=== PATIENT | female | born 1985 | race Caucasian/White ===

== ENCOUNTER → 2016-05-22 | Outpatient (REF) | payer OTHER ==
[~2016-05-22] MED LIST: DOCU10CA PO; FERR325T3 PO; IBUP80TA PO; PERCOCET PO; PRENTAB9 PO
== END | disposition home or self-care (01) ==
LOC: M LAB REF 16:59
PROVIDERS: ATTEND Advanced Practice Midwife
DX: Z34.83 Encounter for supervision of other normal pregnancy, third trimester (principal); Z36 Encounter for antenatal screening of mother; Z3A.00 Weeks of gestation of pregnancy not specified

== ENCOUNTER → 2016-05-23 | Outpatient (CLI) | payer OTHER ==
--- NOTE | 2016-05-23 16:01 | REP ---
Clinical: Growth evaluation. Comparison: 01/26/2016 . Findings: Examination demonstrates a single live intrauterine in cephalic presentation. motion is identified by technologist. Placenta is noted posteriorly and grade zero without evidence for placenta previa or abruption. Amniotic fluid volume is normal. Cervix measures 4.5 cm in length and appears closed. No evidence for nuchal cord. Gestational age by LMP 38 weeks 4-day with MONO 06/02/2016 . Gestational age by current measurements 38 weeks 5 days with MONO 06/01/2016 . FHR equals 131 beats per minute. BPD 10.1 cm 41 weeks 1 day HC 36.2 cm 42+ weeks AC 36.4 cm 40 weeks 2-day FL 7.1 cm 36 weeks 1 day HL 6.3 cm 36 weeks 5 days HC/AC ratio 1.00 Estimated weight 3935 grams ( 82nd percentile). Amniotic fluid index equals 17.4 cm Impression: Single live advanced gestation in cephalic presentation demonstrating appropriate interval growth. Estimated weight and amniotic fluid volume are within normal range. Signed by Eugenio Sandoval MD 05/23/2016 03:53 P
== END ==
LOC: M RAD 13:55
PROVIDERS: ATTEND Advanced Practice Midwife
DX: Z36 Encounter for antenatal screening of mother (principal)

== ENCOUNTER 2016-06-12 05:34 | Inpatient (IN) | payer OTHER ==
[~2016-06-12] VITALS: Ht 165.1 cm; Wt 110.0 kg
[2016-06-12] VITALS (7 sets, daily range): BP systolic 93–108; BP diastolic 50–57
[2016-06-12] MEDS ORDERED: BICITRA 30ML SOLN UDC PO ONE (06:30)
[2016-06-12 06:49] LABS: BASO % 0.2 % (0.0-1.0); EOS # 0.1 K/mm3 (0.0-0.50); EOS % 0.8 % (0.0-3.0); LARGE UNSTAINED CELL # 0.1 K/mm3 (0.0-0.4); LARGE UNSTAINED CELL % 1.6 % (0.0-4.0); LYMPH # 2.3 K/mm3 (1.5-6.5); LYMPH % 25.5 % (24.0-44.0); MEAN CORPUSCULAR HEMOGLOBIN 27.8 pg (27.0-33.0); MEAN CORPUSCULAR HGB CONC 33.5 g/dl (32.0-36.5); MEAN CORPUSCULAR VOLUME 83.1 fl (80.0-96.0); MONO # 0.6 K/mm3 (0.0-0.8); MONO % 7.3 % (0.0-5.0); NEUTROPHILS # 5.6 K/mm3 (1.8-7.7); NEUTROPHILS % 64.6 % (36.0-66.0); PLATELET COUNT, AUTOMATED 281 k/mm3 (150-450); RED CELL DISTRIBUTION WIDTH 13.4 % (11.5-14.5); WHITE BLOOD COUNT 8.6 K/mm3 (4.0-10.0)
[2016-06-12] MEDS ORDERED: OXYTOCIN INJ 10 UNITS/ML VIAL (J2590) As Ordered ONE (07:15)
[2016-06-12] MEDS ORDERED: MORPHINE PRES-FREE INJ 10 MG/10 ML VIAL (J2274) As Ordered ONE (07:15)
[2016-06-12] MEDS ORDERED: NALBUPHINE HCL 10 MG/ML AMP (J2300) IV PRN (07:58)
[2016-06-12] MEDS ORDERED: NALOXONE INJ 0.4 MG/1 ML VIAL (J2310) IV PRN ×2 (07:58)
[2016-06-12] MEDS ORDERED: ONDANSETRON 4MG/2ML VIAL (J2405) IV PRN ×2 (07:58→10:00)
[2016-06-12] MEDS ORDERED: METOCLOPRAMIDE INJ 10MG/2ML VIAL (J2765) IV PRN (07:58)
[2016-06-12] MEDS ORDERED: KETOROLAC 60 MG/2 ML VIAL (J1885) As Ordered ONE (08:16)
[2016-06-12] MEDS ORDERED: ONDANSETRON 4MG/2ML VIAL (J2405) As Ordered ONE (08:16)
[2016-06-12] MEDS ORDERED: PHENYLephrine HCL 500 MCG/5 ML (100MCG/ML) SYRINGE (J2370) As Ordered ONE (08:16)
[2016-06-12] MEDS ORDERED: ePHEDrine SULFATE 25 MG/5 ML(5MG/ML) SYRINGE As Ordered ONE ×2 (08:16→08:27)
[2016-06-12] MEDS ORDERED: OXYTOCIN DRIP 30 UNITS in APPROPRIATE DILUENT 1 EA IV ONE (09:25)
[2016-06-12] MEDS: LR 1,000 ML IV SCH ×3 (09:25→22:50)
[2016-06-12] MEDS ORDERED: PERCOCET 5MG/325MG TAB PO PRN ×3 (09:30→10:00)
[2016-06-12] MEDS ORDERED: MEASLES,MUMPS,RUBELLA VACCINE INJ (MMR-II) (90707) SC SCH (09:30)
[2016-06-12] MEDS ORDERED: DOCUSATE SODIUM 100 MG CAP PO PRN (09:30)
[2016-06-12] MEDS ORDERED: RHOGAM 300 MCG (1500 IU) INJ (J2790) IM SCH (09:30)
[2016-06-12] MEDS ORDERED: MOM 30ML SUSPENSION UDC PO PRN (09:30)
[2016-06-12] MEDS ORDERED: IBUP800T23 PO (09:33)
[2016-06-12] MEDS ORDERED: PERC5TAB6 PO (09:36)
--- NOTE | 2016-06-12 09:47 | RO ---
DATE OF PROCEDURE: 06/12/2016 PREOPERATIVE DIAGNOSIS: Intrauterine at 39 weeks for repeat section. POSTOPERATIVE DIAGNOSIS: Intrauterine at 39 weeks for repeat section. PROCEDURE PERFORMED: Repeat section. SURGEON: Amna Naidu MD ASSISTANTS: Thania Peterson CNM and Marco Ha, MS III. ANESTHESIA: Spinal. ESTIMATED BLOOD LOSS: 900 mL. URINE OUTPUT: 100 mL. INTRAVENOUS FLUIDS: 2 liters of Lactated Ringer's solution. PREOPERATIVE ANTIBIOTICS: 2 grams of Ancef. SPECIMENS: Cord blood. OPERATIVE FINDINGS: Live born male infant, score 9 and 9, weight was 4354 grams or 9 pounds 10 ounces. DESCRIPTION OF PROCEDURE/OPERATION: After informed consent was obtained and written consent was reviewed, the patient was brought to the operating room where spinal anesthesia was placed. She was then placed in supine position with a left lateral tilt. A Telles catheter was placed. She was then prepped and draped in a normal sterile fashion. A time out in the operating room was performed identifying the patient, procedure to be performed, as well as drug allergies. Anesthesia was tested and deemed to be adequate. A Pfannenstiel skin incision was then made and carried down to the underlying rectus fascia. The fascia was scored and this incision was extended bilaterally. The fascia was then dissected off the underlying rectus muscles both superiorly and inferiorly. The rectus muscles were in the midline. The peritoneum was entered sharply and this was extended. The vesicouterine peritoneum was then identified and was tented and excised to create a bladder flap. A bladder blade was placed retracting back the bladder. A curvilinear incision was then made in the lower uterine segment. Amniotomy was then performed productive of clear fluid. The head was then brought to the level of the incision atraumatically followed by delivery of shoulders and corpus. Cord was clamped times two and was cut. The was brought over to the warmer with a good cry. Cord blood was obtained. Placenta was then delivered grossly intact. The uterus was then exteriorized and cleared of all clots and debris. The uterine incision was closed in two layers using #0 Vicryl on the first layer in a running locking fashion followed by a second layer in a running nonlocking fashion for imbrication. There was a left sided uterine extension which was repaired separately using #0 Vicryl. A figure-of-8 stitch was also placed for hemostasis. On inspection, the uterine incision appeared to be hemostatic. The abdomen was then suctioned. The uterus was returned to the patient's abdomen and once again inspected and noted to be hemostatic. The anterior peritoneum was reapproximated using #3-0 Vicryl. The rectus muscles were reapproximated using #3-0 Vicryl. The fascia was then closed using #0 Vicryl in a running, nonlocking fashion. The subcutaneous tissue was reapproximated using #3-0 Vicryl and several subdermal stitches were placed using #3-0 Vicryl. The skin was then closed with #4-0 Monocryl in a subcuticular fashion. The incision was then cleaned and dry. Mastisol was applied above and blow the incision and Steri-Strips applied over the incision and then the incision was dressed. The patient was then taken to recovery in stable condition. Counts were correct. The couple has decided to name their son
[2016-06-12] MEDS ORDERED: LR 1,000 ML IV SCH (10:00)
[2016-06-12] MEDS ORDERED: fentaNYL 100 MCG/2 ML INJECTION (J3010) IV PRN (10:00)
[2016-06-12] MEDS ORDERED: OXYTOCIN 30 UNITS IN 0.9% NaCl 500ML IV BAG (J2590) As Ordered ONE (10:05)
[2016-06-12] MEDS: KETOROLAC 30 MG/ML VIAL (J1885) IV SCH ×2 (15:25→21:11)
[2016-06-12] MEDS ORDERED: LACTATED RINGER'S 1000 ML IV ONE (22:30)
[2016-06-13 02:10] VITALS: BP 101/59
[2016-06-13] MEDS: KETOROLAC 30 MG/ML VIAL (J1885) IV SCH ×2 (02:45→08:53)
[2016-06-13 05:25] VITALS: BP 103/51
[2016-06-13 07:07] LABS: MEAN CORPUSCULAR HEMOGLOBIN 28.2 pg (27.0-33.0); MEAN CORPUSCULAR HGB CONC 33.1 g/dl (32.0-36.5); MEAN CORPUSCULAR VOLUME 85.3 fl (80.0-96.0); RED CELL DISTRIBUTION WIDTH 13.9 % (11.5-14.5)
[2016-06-13] MEDS: PRENATAL VITAMIN TAB PO SCH (08:54)
[2016-06-13] MEDS: LR 1,000 ML IV SCH (09:25)
[2016-06-13 10:00] VITALS: BP 123/64
[2016-06-13 14:04] VITALS: BP 104/54
[2016-06-13] MEDS: IBUPROFEN 800 MG TAB PO SCH (16:50)
[2016-06-13 18:16] VITALS: BP 124/65
[2016-06-13 22:00] VITALS: BP 118/58
[2016-06-14] MEDS: IBUPROFEN 800 MG TAB PO SCH ×2 (01:25→08:45)
[2016-06-14 06:09] VITALS: BP 119/89
--- NOTE | 2016-06-14 08:08 | DSES ---
DATE OF ADMISSION: 06/12/2016 DATE OF DISCHARGE: DISCHARGE DIAGNOSIS: Repeat section. DISCHARGE CONDITION: Stable. PROCEDURE PERFORMED WHILE IN HOSPITAL: 1. Spinal anesthesia. 2. Repeat section. HISTORY AND HOSPITAL COURSE: Mrs. Willard is a 30-year-old, 3, now para 3 who initially presented for scheduled section. She underwent an uncomplicated section productive of a liveborn male infant. Mrs. Willard did well postoperatively. By postoperative day #2 had met all discharge criteria and was discharged home in stable condition. On the date of discharge, physical examination showed vital signs stable. She is afebrile. GENERAL APPEARANCE: She is well appearing. No acute distress. ABDOMEN: Soft, appropriately tender. Fundus is below the umbilicus. Incision was clean, dry and intact, well approximated and not erythematous. EXTREMITIES: Negative for calf tenderness. DISCHARGE INSTRUCTIONS: She was instructed to followup in 2 weeks for an incision check, remain on pelvic rest for 6 weeks, report severe pain, heavy vaginal bleeding, fever, incisional issues.
[2016-06-14] MEDS: PRENATAL VITAMIN TAB PO SCH (08:45)
[2016-06-14] MEDS ORDERED: OXYC1TAB23 PO (11:07)
[2016-06-14] MEDS ORDERED: MOM30SS PO (11:07)
[2016-06-14] MEDS ORDERED: COLA100C PO (11:07)
== END 2016-06-14 14:10 | disposition home or self-care (01) | DRG 540 ==
LOC: M LDI 05:34 → M OBS 11:03
PROVIDERS: ADMIT Obstetrics & Gynecology; ATTEND Obstetrics & Gynecology
PROC: 10D00Z1 Extraction of Products of Conception, Low, Open Approach (ICD-10-PCS; principal; 2016-06-12 07:30)
DX: O34.219 Maternal care for unspecified type scar from previous cesarean delivery (principal); Z37.0 Single live birth; Z3A.39 39 weeks gestation of pregnancy

== ENCOUNTER → 2019-05-25 | Outpatient (REF) | payer OTHER ==
[~2019-05-25] MED LIST changes: +COLA100C5 PO; +IBUP1TAB7 PO; +MOM30SS PO; +OXYC1TAB23 PO; +PERC5TAB12 PO; -PERCOCET PO
== END ==
LOC: M SFHCWAGY 13:35
PROVIDERS: ATTEND Advanced Practice Midwife
DX: Z12.4 Encounter for screening for malignant neoplasm of cervix (principal)

== ENCOUNTER → 2019-05-25 | Outpatient (CLI) | payer OTHER ==
[2019-05-25 13:34] LABS: BASO % 0.5 % (0.0-1.0); EOS # 0.1 10^3/uL (0.0-0.5); EOS % 0.8 % (0.0-3.0); HEMATOCRIT 40.2 % (36.0-47.0); HEMOGLOBIN 13.2 g/dl (12.0-15.5); LYMPH % 22.7 % (24.0-44.0); MEAN CORPUSCULAR HEMOGLOBIN 27.9 pg (27.0-33.0); MEAN CORPUSCULAR HGB CONC 32.8 g/dl (32.0-36.5); MONO # 0.6 10^3/uL (0.0-0.8); MONO % 6.5 % (0.0-5.0); NEUTROPHILS % 69.3 % (36.0-66.0); PLATELET COUNT, AUTOMATED 314 10^3/uL (150-450); RED BLOOD COUNT 4.73 10^6/uL (4.00-5.40); WHITE BLOOD COUNT 8.6 10^3/uL (4.0-10.0)
[2019-05-25 14:21] LABS: HEPATITIS C VIRUS ABY INDEX < 0.0 INDEX (<0.8); HIV 1&2 SCREEN CENTAUR NEGATIVE (NEGATIVE); RUBELLA IgG QUALITATIVE IMMUNE (IMMUNE)
[2019-05-25 14:49] LABS: CHLAMYDIA DNA AMPLIFICATION NEGATIVE (NEGATIVE); GC DNA AMPLIFICATION NEGATIVE (NEGATIVE)
== END ==
LOC: M PLALAB 09:48
PROVIDERS: ATTEND Advanced Practice Midwife
DX: O99.211 Obesity complicating pregnancy, first trimester (principal); O34.211 Maternal care for low transverse scar from previous cesarean delivery

== ENCOUNTER → 2019-07-02 | Outpatient (CLI) | payer OTHER ==
--- NOTE | 2019-07-02 17:42 | REP ---
Obstetric sonography: History: Supervision of for anatomy. Findings: Scanning through the gravid uterus demonstrates a living single intrauterine gestation in a transverse head to the maternal right lie. motion is observed and heart rate is recorded at 156 beats per minute. An anterior left lateral placenta is seen grade 1 without evidence of previa or abruption. Amniotic fluid is subjectively normal. Closed cervical length is measured transabdominally at 4.7 cm. No extrauterine abnormalities observed. No abnormality is noted. heart and outflow tract views and spine visualization are less than optimally achieved due to position. The following additional anatomic structures are identified and felt to be unremarkable: cranium, choroid plexus, cavum, cerebellum and posterior fossa, nuchal fold, face and profile, diaphragm, left-sided stomach, abdominal wall cord insertion, three-vessel cord, kidneys and bladder, upper and lower extremities. Biometry chart: BPD 4.4 cm = 19 weeks 2 days HC 16.7 cm = 19 weeks 2 days AC 14.0 cm = 19 weeks 3 days FL 3.2 cm = 20 weeks 0 days HL 2.9 cm = 19 weeks 3 days HC/AC ratio normal 1.19. Cephalic index normal 0.73. Estimated weight 303 grams, 0 pounds 10 ounces, 56th percentile for 19 weeks 2 days. Impression: Viable single intrauterine gestation at 19 weeks 2 days by today's composite sonographic criteria. MONO by today's sonography November 24, 2019. Visualization of spine and cardiac structures less than optimally achieved.
== END ==
LOC: M WHC 14:48
PROVIDERS: ATTEND Advanced Practice Midwife
DX: O34.219 Maternal care for unspecified type scar from previous cesarean delivery (principal)

== ENCOUNTER → 2019-07-13 | Outpatient (REF) | payer OTHER ==
[2019-07-13 17:48] LABS: APPEARANCE, URINE HAZY (CLEAR); BACTERIA, URINE AUTO 1+ (NEGATIVE); BILIRUBIN, URINE AUTO NEGATIVE (NEGATIVE); BLOOD, URINE BLOOD 1+ (NEGATIVE); COLOR, URINE YELLOW (YELLOW); GLUCOSE, URINE (UA) AUTO NEGATIVE (NEGATIVE); KETONE, URINE AUTO NEGATIVE (NEGATIVE); LEUKOCYTE ESTERASE, URINE AUTO 1+ (NEGATIVE); NITRITE, URINE AUTO NEGATIVE (NEGATIVE); PROTEIN, URINE AUTO NEGATIVE (NEGATIVE); RBC, URINE AUTO 17 /HPF (0-3); SPECIFIC GRAVITY URINE AUTO 1.009 (1.002-1.035); SQUAMOUS EPITHELIAL CELL UR AU 0 /HPF (0-6); UROBILINOGEN, URINE AUTO 0.2 mg/dL (0.0-2.0); WBC, URINE AUTO 97 /HPF (0-3)
== END ==
LOC: M PLALAB 11:00
PROVIDERS: ATTEND Obstetrics & Gynecology
DX: R30.0 Dysuria (principal)

== ENCOUNTER → 2019-08-03 | Outpatient (CLI) | payer OTHER | LOC: M WHC 14:37 | PROVIDERS: ATTEND Advanced Practice Midwife | DX: O34.219 Maternal care for unspecified type scar from previous cesarean delivery (principal) ==

== ENCOUNTER → 2019-08-14 | Outpatient (CLI) | payer OTHER ==
--- NOTE | 2019-08-15 09:31 | REP ---
REASON FOR EXAM: Followup spine and cardiac structures. Multiple ultrasonographic images of the gravid uterus show a single living intrauterine gestation in the transverse head to maternal right position. Doppler interrogation of the heart shows a heart rate of 149 beats per minute. The placenta is anterior and not low lying. The cervix measures 4.6 cm in length and is closed. The subjective amniotic fluid volume is within normal limits. BPD 6.5 cm = 26 weeks 2 days HC 24.4 cm = 26 weeks 3 days AC 21.4 cm = 25 weeks 6 days FL 4.8 cm = 26 weeks 1 day The estimated weight is 890 grams, which is at the 62nd percentile for a 25 week 3 day gestational age. Four-chamber heart and left ventricular outflow tract were seen to be within normal limits. The right ventricular outflow tract was poorly visualized. IMPRESSION: Single living intrauterine gestation as described above, with an estimated gestational age of 25 weeks 6 days via composite criteria and an estimated date of delivery of 11/21/2019 by today's exam. No anomalies were detected, however, I recommend a followup examination to better visualize the right ventricular outflow tract.
== END ==
LOC: M WHC 15:02
PROVIDERS: ATTEND Advanced Practice Midwife
DX: O34.219 Maternal care for unspecified type scar from previous cesarean delivery (principal); Z3A.25 25 weeks gestation of pregnancy

== ENCOUNTER → 2019-08-18 | Outpatient (REF) | payer OTHER ==
[2019-08-18 12:40] LABS: HEMATOCRIT 39.4 % (36.0-47.0); HEMOGLOBIN 13.2 g/dl (12.0-15.5); MEAN CORPUSCULAR HEMOGLOBIN 29.5 pg (27.0-33.0); MEAN CORPUSCULAR HGB CONC 33.5 g/dl (32.0-36.5); MEAN CORPUSCULAR VOLUME 88.1 fl (80.0-96.0); PLATELET COUNT, AUTOMATED 331 10^3/uL (150-450); RED BLOOD COUNT 4.47 10^6/uL (4.00-5.40); WHITE BLOOD COUNT 13.2 10^3/uL (4.0-10.0)
== END ==
LOC: M PLALAB 09:49
PROVIDERS: ATTEND Advanced Practice Midwife
DX: O34.219 Maternal care for unspecified type scar from previous cesarean delivery (principal)
CPT/HCPCS: 36415; 82950; 85027; 86850; 86900; 86901; J2790

== ENCOUNTER 2019-11-20 10:30 | Inpatient (IN) | payer OTHER ==
[~2019-11-20 10:30] MED LIST changes: +BICITRA 30ML SOLN UDC ONE; +KETOROLAC 60MG 2ML VIAL ONE; +MORPHINE PRES-FREE INJ 10 MG/10 ML VIAL (J2274) ONE; +ONDANSETRON 4MG/2ML VIAL ONE; +OXYTOCIN INJ 10 UNITS/ML VIAL (J2590) ONE; +PHENYLephrine HCL 500 MCG/5 ML (100MCG/ML) SYRINGE (J2370) ONE; +ceFAZolin 2 GM/D5W 50 ML IV BAG (J0690 PER 500MG) ONE; +dexameTHASONE 4 MG/ML 1ML VIAL (J1100 PER 1MG) ONE; +ePHEDrine SULFATE 25 MG/5 ML(5MG/ML) SYRINGE ONE; +fentaNYL 100 MCG/2 ML INJECTION (J3010) ONE
[2019-11-20] MEDS ORDERED: OXYTOCIN 30 UNITS IN 0.9% NaCl 500ML IV BAG (J2590) ONE (10:54)
[2019-11-20] MEDS ORDERED: KETOROLAC 30 MG/ML 1ML VIAL ONE ×2 (15:44→20:04)
[2019-11-20] MEDS ORDERED: DOCUSATE SODIUM 100 MG CAP ONE (20:04)
[2019-11-21] MEDS ORDERED: KETOROLAC 30 MG/ML 1ML VIAL ONE (04:26)
[2019-11-21] MEDS ORDERED: DOCUSATE SODIUM 100 MG CAP ONE ×2 (09:05→19:59)
[2019-11-21] MEDS ORDERED: IBUPROFEN 800 MG TAB ONE ×2 (11:52→19:59)
[2019-11-22] MEDS ORDERED: PERCOCET 5MG/325MG TAB ONE (02:40)
[2019-11-22] MEDS ORDERED: IBUPROFEN 800 MG TAB ONE (03:56)
--- NOTE | 2020-01-14 10:51 | RO ---
DATE OF OPERATION: 11/20/2019 PREOPERATIVE DIAGNOSES: Intrauterine at 39 weeks. History of three prior sections. Satisfied parity with undesired fertility. POSTOPERATIVE DIAGNOSES: Intrauterine at 39 weeks. History of three prior sections. Satisfied parity with undesired fertility. PROCEDURE PERFORMED: Repeat section with bilateral partial salpingectomies. ANESTHESIA: Spinal. SURGEON: Amna Naidu MD MATERIAL DAMAGE ADJUSTER: Nasir Yanes MD ESTIMATED BLOOD LOSS: 600 mL. INTRAVENOUS FLUIDS: 1500 mL of lactated ringer solution. URINE OUTPUT: 300 mL. PREOPERATIVE ANTIBIOTICS: 2 grams of Ancef. SPECIMENS: Bilateral segments of fallopian tube. DESCRIPTION OF PROCEDURE: After informed consent was obtained and written consent was reviewed, the patient was brought to the operating room where spinal anesthesia was placed. She was then placed in the supine position with a left lateral tilt. Telles catheter was placed and set to gravity. She was then prepped and draped in a normal sterile fashion. A time-out in the operating room was then performed identifying the patient, procedure to be performed, as well as drug allergies. Anesthesia was tested and deemed to be adequate. A Pfannenstiel skin incision was then made and this was carried down to the underlying rectus fascia. The fascia was then scored and this incision was extended bilaterally. The fascia was then dissected off the underlying rectus muscles both superiorly and inferiorly. The rectus muscles were then in the midline. The peritoneum was then entered sharply. A Mobius retractor was then placed. The vesicouterine peritoneum was then tented and excised to create a bladder flap. A curvilinear incision was then made in the lower uterine segment. Amniotomy was then performed productive of clear fluid. head was brought through level within the incision atraumatically and delivered along with shoulders and corpus. The cord was clamped x2, and the infant was taken over to the warmer with a good cry. Cord blood was obtained. The placenta was then delivered grossly intact. The uterus was then cleared of all clots and debris. The uterine incision was then closed in two layers using an 0-Vicryl first in a running locking fashion followed by a second layer for imbrication in a running nonlocking fashion. Bilateral partial salpingectomies were performed. The fallopian tube was placed on traction. A window was created in the mesosalpinx and this area and the fallopian tube was doubly ligated with 3-0 Chromic and was excised with good hemostasis noted. The right fallopian tube was then placed in traction, including the fimbriated portion. This area was clamped beneath the mesosalpinx and was excised. The remainder of the fallopian tube was stitch tied with 3-0 Vicryl with good hemostasis noted. The surgical sites were inspected and noted to be hemostatic. The abdomen was then irrigated and suctioned. The Mobius retractor was then removed. Then the anterior peritoneum was reapproximated with 3-0 Vicryl. The rectus muscle was then reapproximated with 3-0 Vicryl. The fascia was then closed with 0-Vicryl in a running nonlocking fashion. The subcutaneous tissue was then irrigated and suctioned. The subcutaneous tissue was then reapproximated with 3-0 Vicryl. Several subdermal stitches were placed with 3-0 Vicryl and the skin was closed with 4-0 Monocryl in a subcuticular fashion. The incision was then clean, dried, and dressed, and the patient was taken to recovery in stable condition. Counts were correct. My food service assistant, Dr. Yanes, played an essential role during the surgery. He assisted with tissue identification, retraction, and delivery of the , as well as wound closure. HANS
--- NOTE | 2020-01-15 13:36 | DS ---
DATE OF ADMISSION: 11/20/2019 DATE OF DISCHARGE: 11/22/2019 DISCHARGE DIAGNOSIS: Repeat section with bilateral partial salpingectomy. PROCEDURE PERFORMED: Repeat section with bilateral salpingectomies. DISCHARGE CONDITION: Stable. HISTORY AND HOSPITAL COURSE: Ms. Willard presented for a scheduled section 11/20/2019 which was unremarkable, estimated blood was 600 mL. She did well postoperatively and by postoperative day #2 had met all discharge criteria and was discharged home in stable condition. PHYSICAL EXAM ON DATE OF DISCHARGE: Vital signs are stable. She is afebrile. General appearance is well-appearing, no acute distress. Abdomen is soft, appropriately tender. Fundus is firm below umbilicus. Her incision was dressed. Extremities were negative for calf tenderness. DISCHARGE MEDICATIONS: - ibuprofen - Percocet DISCHARGE INSTRUCTIONS: 1. She was instructed to followup in 2 weeks. 2. Report severe pain, heavy vaginal bleeding, fever, incisional issues. HANS
[2020-01-17 06:58] LABS: HEMATOCRIT 39.7 % (36.0-47.0); HEMOGLOBIN 13.3 g/dl (12.0-15.5); MEAN CORPUSCULAR HEMOGLOBIN 28.6 pg (27.0-33.0); MEAN CORPUSCULAR HGB CONC 33.5 g/dl (32.0-36.5); MEAN CORPUSCULAR VOLUME 85.4 fl (80.0-96.0); PLATELET COUNT, AUTOMATED 277 10^3/uL (150-450); RED BLOOD COUNT 4.65 10^6/uL (4.00-5.40); WHITE BLOOD COUNT 11.5 10^3/uL (4.0-10.0)
[2020-01-17 18:14] LABS: HEMOGLOBIN 9.9 g/dl (12.0-15.5); MEAN CORPUSCULAR HEMOGLOBIN 28.3 pg (27.0-33.0); MEAN CORPUSCULAR VOLUME 85.7 fl (80.0-96.0); PLATELET COUNT, AUTOMATED 205 10^3/uL (150-450); WHITE BLOOD COUNT 10.9 10^3/uL (4.0-10.0)
== END 2019-11-22 08:00 | disposition home or self-care (01) | DRG 540 ==
LOC: M LDI 10:30
PROVIDERS: ADMIT Obstetrics & Gynecology; ATTEND Obstetrics & Gynecology
PROC: 10D00Z1 Extraction of Products of Conception, Low, Open Approach (ICD-10-PCS; principal; 2019-11-20)
PROC: 0UB70ZZ Excision of Bilateral Fallopian Tubes, Open Approach (ICD-10-PCS; 2019-11-20)
DX: O34.211 Maternal care for low transverse scar from previous cesarean delivery (principal); Z37.0 Single live birth; Z3A.39 39 weeks gestation of pregnancy; Z30.2 Encounter for sterilization

== ENCOUNTER → 2024-04-07 | Outpatient (CLI) | payer OTHER ==
[~2024-04-07] MED LIST changes: -BICITRA 30ML SOLN UDC ONE; -KETOROLAC 60MG 2ML VIAL ONE; -MORPHINE PRES-FREE INJ 10 MG/10 ML VIAL (J2274) ONE; -ONDANSETRON 4MG/2ML VIAL ONE; -OXYTOCIN INJ 10 UNITS/ML VIAL (J2590) ONE; -PHENYLephrine HCL 500 MCG/5 ML (100MCG/ML) SYRINGE (J2370) ONE; -ceFAZolin 2 GM/D5W 50 ML IV BAG (J0690 PER 500MG) ONE; -dexameTHASONE 4 MG/ML 1ML VIAL (J1100 PER 1MG) ONE; -ePHEDrine SULFATE 25 MG/5 ML(5MG/ML) SYRINGE ONE; -fentaNYL 100 MCG/2 ML INJECTION (J3010) ONE
== END ==
LOC: M WHC 13:56
PROVIDERS: ATTEND Nurse Practitioner
DX: N61.0 Mastitis without abscess (principal); D49.3 Neoplasm of unspecified behavior of breast

== ENCOUNTER → 2024-05-14 | Outpatient (CLI) | payer OTHER ==
[2024-05-14 07:46] VITALS: TEMP 98.4
[2024-05-14 09:02] VITALS: BP 126/80; O2SAT 100
== END ==
LOC: M WHCPRO 07:30
PROVIDERS: ATTEND Nurse Practitioner Family
DX: D49.3 Neoplasm of unspecified behavior of breast (principal); N63.41 Unspecified lump in right breast, subareolar

== ENCOUNTER → 2024-06-23 | Outpatient (REF) | payer OTHER ==
[2024-06-25 14:52] LABS: HPV APTIMA Not Detected (Not Detected)
== END ==
LOC: M SFHCWAGY 15:28
PROVIDERS: ATTEND Advanced Practice Midwife
DX: Z12.4 Encounter for screening for malignant neoplasm of cervix (principal)